=== PATIENT | female | born 1990 | race Two or more races ===

== ENCOUNTER 2018-12-06 16:43 | Emergency (ER) | payer OTHER ==
[~2018-12-06] VITALS: Ht 175.3 cm; Wt 63.5 kg
[2018-12-06 17:02] VITALS: BP 134/91
[2018-12-06] MEDS ORDERED: FAMOTIDINE (20 MG) 20 MG TABLET ONE (17:23)
[2018-12-06] MEDS ORDERED: predniSONE 20 MG TABLET ONE (17:24)
[2018-12-06] MEDS ORDERED: predniSONE 20 MG TABLET PO ONE (17:30)
[2018-12-06] MEDS ORDERED: FAMOTIDINE (20 MG) 20 MG TABLET PO ONE (17:30)
== END 2018-12-06 17:51 | disposition home or self-care (01) ==
LOC: ER 16:43
DX: L50.9 Urticaria, unspecified (principal); Z60.2 Problems related to living alone
CPT/HCPCS: 99283; J7512